=== PATIENT | female | born 1980 | race Caucasian/White ===

== ENCOUNTER 2017-04-09 18:41 | Emergency (ER) | payer OTHER ==
[~2017-04-09] VITALS: Ht 160 cm; Wt 83.0 kg
[~2017-04-09 18:41] MED LIST: ACET325 PO; IMIT50TA PO; KETO10 PO; PERI8.6T
[2017-04-09 18:43] VITALS: BP 142/82; PULSE 109; RESP 18; TEMP 98.6; O2SAT 98
[2017-04-09] MEDS ORDERED: SODIUM CHLOR 0.9% 1000 ML INJ 1,000 ML IV ONE (20:00)
[2017-04-09] MEDS ORDERED: KETOROLAC TROMETHAMINE 30 MG/ML (IVP) VIAL IV PUSH ONE (20:00)
[2017-04-09] MEDS ORDERED: ONDANSETRON HCL 4 MG/2 ML VIAL IV PUSH ONE (20:00)
[2017-04-09 20:02] LABS: BLOOD, URINE NEG (NEG); GLUCOSE,URINE NEG (NEG); KETONE, URINE NEG (NEG); MUCUS URINE FEW /lpf (OCC); NITRITE,URINE NEG (NEG); SQUAMOUS EPITHELIAL CELL URINE <1 /hpf (0-5); URINE COLOR LIGHT-YELLOW (YELLW/STRAW)
[2017-04-09 20:03] LABS: COMMENT (UR) CATH-CULT NOT IND; CULTURE IF INDICATED CATH CULTURE NOT IND
[2017-04-09 20:54] LABS: AUTOMATED NEUTROPHIL # 5.8 TH/MM3 (1.8-7.7); BASOPHIL % 0.5 % (0.0-2.0); EOSINOPHIL # 0.1 TH/MM3 (0-0.4); EOSINOPHIL % 1.3 % (0.0-4.0); HEMATOCRIT 40.3 % (35.0-46.0); HEMO FLAGS DIFF FINAL; LYMPH % 31.5 % (9.0-44.0); MEAN CORPUSCULAR HEMOGLOBIN 29.2 PG (27.0-34.0); MEAN CORPUSCULAR HGB CONC 32.4 % (32.0-36.0); MONO % 5.3 % (0.0-8.0); NEUT % 61.4 % (16.0-70.0); PLATELET COUNT 287 TH/MM3 (150-450); RED BLOOD COUNT 4.47 MIL/MM3 (4.00-5.30); RED CELL DISTRIBUTION WIDTH 13.1 % (11.6-17.2); WHITE BLOOD COUNT 9.5 TH/MM3 (4.0-11.0)
[2017-04-09 21:15] LABS: ANION GAP 8 MEQ/L (5-15); AST (GOT) 14 U/L (15-37); BICARBONATE 27.6 MEQ/L (21.0-32.0); BLOOD UREA NITROGEN 10 MG/DL (7-18); CHLORIDE 104 MEQ/L (98-107); GLOMERULAR FILTRATION RATE 108 ML/MIN (>89); POTASSIUM 3.7 MEQ/L (3.5-5.1); SODIUM (NA) 140 MEQ/L (136-145)
[2017-04-09 21:21] LABS: ALKALINE PHOSPHATASE 63 U/L (45-117); ALT (GPT) 32 U/L (10-53); BETA HCG QUANT LESS THAN 1 MIU/ML (0-5); INDIRECT BILIRUBIN 0.1 MG/DL (0.0-0.8); TOTAL BILIRUBIN ADULT 0.2 MG/DL (0.2-1.0)
[2017-04-09] MEDS ORDERED: IOHEXOL 350 MG/ML 10 ML VIAL (for RAD DIAG) IV ONE (21:44)
--- NOTE | 2017-04-09 21:58 | RADRPT ---
EXAM DATE/TIME: 04/09/2017 21:40 [facility] COMPARISON: No previous studies available for comparison. INDICATIONS : Patient with abdominal pain and nausea . IV CONTRAST: 90 cc Omnipaque 350 (iohexol) IV ORAL CONTRAST: No oral contrast ingested. RADIATION DOSE: 13.41 CTDIvol (mGy) MEDICAL HISTORY : None SURGICAL HISTORY : Cholecystectomy. ENCOUNTER: Initial ACUITY: 1 day PAIN SCALE: 5/10 LOCATION: Right upper quadrant TECHNIQUE: Volumetric scanning of the abdomen and pelvis was performed. Using automated exposure control and ad justment of the mA and/or kV according to patient size, radiation dose was kept as low as reasonably achievable to obtain optimal diagnostic quality images. FINDINGS: LOWER LUNGS: The visualized lower lungs are clear. LIVER: Homogeneous density without lesion. There is no dilation of the biliary tree. No calcified gallston es. SPLEEN: Normal size without lesion. PANCREAS: Within normal limits. KIDNEYS: Normal in size and shape. There is no mass, stone or hydronephrosis. ADRENAL GLANDS: Within normal limits. VASCULAR: There is no aortic aneurysm. BOWEL/MESENTERY: The stomach, small bowel, and colon demonstrate no acute abnormality. There is no free intraperitone al air or fluid. The appendix is well-visualized, normal. ABDOMINAL WALL: Within normal limits. RETROPERITONEUM: There is no lymphadenopathy. BLADDER: No wall thickening or mass. REPRODUCTIVE: 3.9 x 4.4 cm circumscribed, internally heterogeneous mass seen in the right adnexal region posterior to the ovary. There is no free fluid. INGUINAL: There is no lymphadenopathy or hernia. MUSCULOSKELETAL: Within normal limits for patient age. CONCLUSION: 1. Heterogeneous right adnexal mass not convincing for simple cysts. Hemorrhagic cyst, endometrioma a nd ovarian neoplasm would be in the differential. Transvaginal pelvic ultrasound recommended. 2. Otherwise, CT of the abdomen and pelvis is within normal limits. No obstruction or acute inflammat ory changes. Normal appendix. Tony Hart MD on April 09, 2017 at 21:52 Board Certified Radiologist. This report was verified electronically.
[2017-04-09 22:13] VITALS: BP 121/81; PULSE 58; RESP 18; O2SAT 97
--- NOTE | 2017-04-09 23:07 | RADRPT ---
EXAM DATE/TIME: 04/09/2017 22:34 [facility] COMPARISON: No previous studies available for comparison. INDICATIONS : Pelvic pain. MEDICAL HISTORY : Migraines. Depression. SURGICAL HISTORY : Cholecystectomy. D&C. ENCOUNTER: Initial ACUITY: 1 day PAIN SCORE: 4/10 LOCATION: Bilateral pelvis MEASUREMENTS: UTERUS: 9.2 x 6.1 x 3.9 cm ENDOMETRIAL STRIPE: 6 mm RIGHT OVARY: 2.5 x 3.1 x 3.1 cm LEFT OVARY: 1.9 x 3.3 x 2.7 cm FINDINGS: UTERUS: The myometrium has homogeneous echotexture without mass. RIGHT OVARY: Ovary contains no mass or significant cystic lesion. LEFT OVARY: Ovary contains no mass or significant cystic lesion. MISCELLANEOUS: No free fluid. CONCLUSION: Normal examination. Right ovary has numerous small functional cysts on it. No concerning solid masses identified. Fady Estrada MD on April 09, 2017 at 23:02 Board Certified Radiologist. This report was verified electronically.
[2017-04-09] MEDS ORDERED: traMADol HCL 50 MG TAB PO ONE (23:15)
[2017-04-09] MEDS ORDERED: TRAM50TA PO (23:24)
--- NOTE | 2017-04-09 23:24 | PD ---
HPI Chief Complaint: Abdominal Pain Time Seen by Provider: 19:47 Travel History International Travel<30 days: No Contact w/Intl Traveler<30days: No Traveled to known affect area: No History of Present Illness HPI Patient is a 37-year-old female complaining of right-sided abdominal pain that started this morning. She says the pain has gotten worse throughout the day. She will see has pain when she pushes on her abdomen. She's had some nausea, but no vomiting. She denies any dysuria or urgency or frequency. She denies any vaginal discharge. She denies fever or chills. PFSH Past Medical History Arthritis: No Asthma: No Autoimmune Disease: No Anxiety: No Depression: Yes (2005 AFTER 1ST BABY) Heart Rhythm Problems: No Cancer: No Cardiovascular Problems: No High Cholesterol: No Chemotherapy: No Chest Pain: No Congestive Heart Failure: No COPD: No Cerebrovascular Accident: No Diabetes: No Diminished Hearing: No Endocrine: No GERD: No Glaucoma: No Genitourinary: No Headaches: Yes Hepatitis: No Hiatal Hernia: No Hypertension: No Immune Disorder: No Kidney Stones: No Musculoskeletal: No Neurologic: No Psychiatric: No Reproductive: No Respiratory: No Migraines: Yes (LAST ONE 2003) Myocardial Infarction: No Radiation Therapy: No Renal Failure: No Seizures: No Sickle Cell Disease: No Sleep Apnea: No Thyroid Disease: No Ulcer: No Influenza Vaccination: Yes ?: Not LMP: 03-12- Past Surgical History Abdominal Surgery: Yes (2013 LAP/JENAE) AICD: No Arteriovenous Shunt: No Cardiac Surgery: No Ear Surgery: No Endocrine Surgery: No Eye Surgery: No Genitourinary Surgery: No Gynecologic Surgery: Yes (D&C 2009) Insulin Pump: No Joint Replacement: No Oral Surgery: Yes Pacemaker: No Thoracic Surgery: No Other Surgery: Yes (D&C) Social History Alcohol Use: No (RARELY) Tobacco Use: No Substance Use: No Allergies-Medications (Allergen,Severity, Reaction): Coded Allergies: No Known Allergies (Unverified , 04/09/17) Reported Meds & Prescriptions Reported Meds & Active Scripts Active No Active Prescriptions or Reported Medications Review of Systems Except as stated in HPI: all other systems reviewed are Neg General / Constitutional: No: Fever, Chills HENT: No: Headaches, Lightheadedness Cardiovascular: No: Chest Pain or Discomfort Respiratory: No: Shortness of Breath Gastrointestinal: Positive: Nausea, Abdominal Pain, No: Vomiting Genitourinary: No: Dysuria, Discharge, Vaginal Bleeding Musculoskeletal: No: Edema, Pain Skin: No Rash, No Change in Pigmentation Neurologic: No: Weakness, Dizziness Physical Exam Narrative GENERAL: Awake and alert, in no acute distress. SKIN: Focused skin assessment warm/dry. HEAD: Atraumatic. Normocephalic. EYES: Pupils equal and round. No scleral icterus. ENT: Mucous membranes pink and moist. NECK: Trachea midline. No JVD. CARDIOVASCULAR: Regular rate and rhythm. No murmur appreciated. RESPIRATORY: No accessory muscle use. Clear to auscultation. Breath sounds equal bilaterally. GASTROINTESTINAL: Abdomen soft, nondistended. Tender to palpation the right side of the abdomen. Voluntary guarding, no rebound. MUSCULOSKELETAL: No obvious deformities. No clubbing. No cyanosis. No edema. NEUROLOGICAL: Awake and alert. No obvious cranial nerve deficits. Motor grossly within normal limits. Normal speech. PSYCHIATRIC: Appropriate mood and affect; insight and judgment normal. Data Data Last Documented VS Vital Signs Date Time Temp Pulse Resp B/P Pulse Ox O2 Delivery O2 Flow Rate FiO2 04/09/17 22:13 58 18 121/81 97 Room Air 04/09/17 18:43 98.6 Orders Urinalysis - C+S If Indicated (04/09/17 19:03) Complete Blood Count With Diff (04/09/17 19:52) Basic Metabolic Panel (Bmp) (04/09/17 19:52) Hepatic Functional Panel (04/09/17 19:52) Lipase (04/09/17 19:52) Ed Urine Pregnancytest Poc (04/09/17 19:52) Beta Hcg (Quant/Titer) (04/09/17 19:52) Ct Abd/Pel W Iv Contrast(Rout) (04/09/17 ) Sodium Chlor 0.9% 1000 Ml Inj (Ns 1000 M (04/09/17 20:00) Ketorolac Inj (Toradol Inj) (04/09/17 20:00) Ondansetron Inj (Zofran Inj) (04/09/17 20:00) Iohexol 350 Inj (Omnipaque 350 Inj) (04/09/17 21:44) Us Pelvis Comp Multiplex Operator/Non-Preg (04/09/17 ) Tramadol (Ultram) (04/09/17 23:15) Labs Laboratory Tests Test 04/09/17 04/09/17 19:05 20:30 Urine Color LIGHT-YELLOW Urine Turbidity CLEAR Urine pH 8.0 Urine Specific [place] 1.010 Urine Protein NEG mg/dL Urine Glucose (UA) NEG mg/dL Urine Ketones NEG mg/dL Urine Occult Blood NEG Urine Nitrite NEG Urine Bilirubin NEG Urine Urobilinogen LESS THAN 2.0 MG/DL Urine Leukocyte Esterase NEG Urine RBC LESS THAN 1 /hpf Urine WBC LESS THAN 1 /hpf Urine Squamous Epithelial <1 /hpf Cells Urine Mucus FEW /lpf Microscopic Urinalysis Comment CATH-CULT NOT IND White Blood Count 9.5 TH/MM3 Red Blood Count 4.47 MIL/MM3 Hemoglobin 13.0 GM/DL Hematocrit 40.3 % Mean Corpuscular Volume 90.0 FL Mean Corpuscular Hemoglobin 29.2 PG Mean Corpuscular Hemoglobin 32.4 % Concent Red Cell Distribution Width 13.1 % Platelet Count 287 TH/MM3 Mean Platelet Volume 7.4 FL Neutrophils (%) (Auto) 61.4 % Lymphocytes (%) (Auto) 31.5 % Monocytes (%) (Auto) 5.3 % Eosinophils (%) (Auto) 1.3 % Basophils (%) (Auto) 0.5 % Neutrophils # (Auto) 5.8 TH/MM3 Lymphocytes # (Auto) 3.0 TH/MM3 Monocytes # (Auto) 0.5 TH/MM3 Eosinophils # (Auto) 0.1 TH/MM3 Basophils # (Auto) 0.0 TH/MM3 CBC Comment DIFF FINAL Differential Comment Sodium Level 140 MEQ/L Potassium Level 3.7 MEQ/L Chloride Level 104 MEQ/L Carbon Dioxide Level 27.6 MEQ/L Anion Gap 8 MEQ/L Blood Urea Nitrogen 10 MG/DL Creatinine 0.62 MG/DL Estimat Glomerular Filtration 108 ML/MIN Rate Random Glucose 84 MG/DL Calcium Level 8.7 MG/DL Total Bilirubin 0.2 MG/DL Direct Bilirubin 0.1 MG/DL Indirect Bilirubin 0.1 MG/DL Aspartate Amino Transf 14 U/L (AST/SGOT) Alanine Aminotransferase 32 U/L (ALT/SGPT) Alkaline Phosphatase 63 U/L Total Protein 7.2 GM/DL Albumin 3.4 GM/DL Lipase 95 U/L Human Chorionic Gonadotropin, LESS THAN 1 Quant MIU/ML [facility] Medical Decision Making Medical Screen Exam Complete: Yes Emergency Medical Condition: Yes Differential Diagnosis Appendicitis versus ovarian cyst versus colitis Narrative Course Patient is a 37-year-old female comes in complaining of right-sided abdominal pain. Exam shows tenderness to the right side of the abdomen. IV established, labs sent. Labs show no acute abnormalities. CT of the abdomen and pelvis shows a right ovarian mass. Ultrasound performed shows multiple simple cysts, no torsion. Given Toradol for pain. The ultrasound, patient had increased pain, given tramadol. Will be discharged with prescription for tramadol to take as needed for severe pain. 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 Advised to return to the ED as needed for any worsening symptoms. Diagnosis Primary Impression: Ovarian cyst Patient Instructions: General Instructions, Ovarian Cyst (ED) Additional Instructions: Follow-up with gynecology. Take ibuprofen as needed for pain, he can take tramadol for severe pain. Drink plenty of fluids. Return to the ED as needed for any worsening symptoms. Scripts Tramadol 50 Mg Tab50 Mg PO Q6H PRN (PAIN) #14 TAB Ref 0 Prov:Shabnam Victor MD 04/09/17 Disposition: 01 DISCHARGE HOME Condition: Stable Shabnam Victor MD Apr 09, 2017 23:24
== END 2017-04-09 23:37 | disposition home or self-care (01) ==
LOC: NEPD 18:41
DX: N83.209 Unspecified ovarian cyst, unspecified side (principal); R11.0 Nausea
CPT/HCPCS: 74177; 76856; 80048; 80076; 81001; 83690; 84702; 84703; 85025; 96361; 96374; 96375; 99285; J1885; J2405; J7030; Q9967